=== PATIENT | male | born 1965 | race Caucasian/White ===

== ENCOUNTER 2017-02-22 10:10 | Inpatient (IN) | payer OTHER ==
[~2017-02-22] VITALS: Ht 180.3 cm; Wt 63.6 kg
[2017-02-22 10:26] LABS: BASOPHIL COUNT 0.1 K/uL (0-0.1); EOSINOPHIL (%) 4.5 % (0-5); EOSINOPHIL COUNT 0.6 K/uL (0-0.3); HEMATOCRIT 48.1 % (38.0-50.0); IMMATURE GRANULOCYTE (%) 0.4 % (0.0-0.7); IMMATURE GRANULOCYTE COUNT 0.1 K/uL; INSTRUMENT ABS NEUTROPHIL CT 10.3 K/uL; LYMPHOCYTE COUNT 1.8 K/uL (1.0-2.8); MCHC 33.7 G/DL (30.0-36.0); MEAN PLAT.VOLUME 9.8 uM^3 (9.0-12.4); MONOCYTE COUNT 1.1 K/uL (0-0.8); NEUTROPHIL (%) 73.8 % (45-76); NEUTROPHIL COUNT 10.3 K/uL (1.8-6.4); PLATELET COUNT 288 K/uL (156-360); RBC DIS.WIDTH-CV 12.5 % (11.8-14.6); RBC DIS.WIDTH-SD 42.5 % (39-53); RED BLOOD COUNT 5.23 M/uL (4.00-5.50); WHITE BLOOD COUNT 13.9 K/uL (4.1-10.2)
[2017-02-22 10:40] LABS: AMYLASE 47 IU/L (1-118); CHLORIDE 105 mEq/L (99-109); POTASSIUM 4.4 mEq/L (3.7-5.4); SODIUM 139 mEq/L (136-147)
[2017-02-22 10:41] LABS: GLUCOSE 94 mg/dL (70-99)
[2017-02-22 10:43] LABS: ANION GAP 11 MEQ/L (2-14); INTER. NORMALIZED RATIO 0.9; PROTHROMBIN TIME 10.1 SEC (10.2-12.9)
[2017-02-22 10:44] LABS: SERUM ETHYL ALCOHOL < 10 mg/dL
[2017-02-22 10:45] LABS: GFR ESTIMATE (CALCULATED) > 59 mL/min/
[2017-02-22 10:46] LABS: PTT 29.8 SEC (25-37); UREA NITROGEN (BUN) 3 mg/dL (9-23)
[2017-02-22 10:48] LABS: LIPASE 16 U/L (1.0-51.0)
[2017-02-22 10:49] LABS: TROP-I INTERPRETATION NEGATIVE; TROPONIN-I < 0.01 ng/mL (0.0-0.30)
[2017-02-22 13:33] LABS: ADD MIUA? NO; BILIRUBIN NEGATIVE; BLOOD NEGATIVE; COLOR STRAW ((YELLOW)); GLUCOSE (STRIP) NEGATIVE; KETONES NEGATIVE; LEUKOCYTES NEGATIVE; NITRITE NEGATIVE; PROTEIN (STRIP) NEGATIVE; SPECIFIC GRAVITY 1.009 (1.000-1.030); UCUL ADDED? NO; UROBILINOGEN 0.2 MG/DL (0.2-1.0)
[2017-02-22] MEDS ORDERED: OXYCODONE-APAP1 EACH PO (13:38)
[2017-02-22] MEDS ORDERED: AMITRIPTYLINE H10 MG PO (13:39)
[2017-02-22] MEDS ORDERED: METHOCARBAMOL500 MG PO (13:39)
[2017-02-22] MEDS ORDERED: IBUPROFEN800 MG PO (13:41)
[2017-02-22] MEDS ORDERED: ENBREL50 MG/1 ML SC (13:41)
[2017-02-22 13:42] LABS: AMPHETAMINE NEGATIVE (500 ng/mL); BARBITURATES NEGATIVE (200 ng/mL); BENZODIAZEPINES NEGATIVE (150 ng/mL); COCAINE NEGATIVE (150 ng/mL); INTERNAL CONTROLS VALID? YES; METHADONE NEGATIVE (200 ng/mL); METHAMPHETAMINE NEGATIVE (500 ng/mL); OPIATES (MORPHINE) NEGATIVE (100 ng/mL); OXYCODONE PRESUMPTIVE POSITIVE (100 ng/mL); PHENCYCLIDINE NEGATIVE (25 ng/mL); PROPOXYPHENE NEGATIVE (300 ng/mL); THC CANNABINOIDS NEGATIVE (50 ng/mL); TRICYCLIC ANTIDEPRESSANTS PRESUMPTIVE POSITIVE (300 ng/mL)
[2017-02-22 15:12] LABS: HDL CHOLESTEROL 39 MG/DL (Desirable>=40); LDL CHOLESTEROL 144 mg/dL (Desirable<100); NON-HDL CHOLESTEROL 205 mg/dL (Desirable<160); TOTAL CHOLESTEROL 244 mg/dL (Desirable<200); TRIGLYCERIDES 303 MG/DL (Normal: <150)
[2017-02-22] MEDS ORDERED: CLONAZEPAM0.5 MG PO (16:03)
[2017-02-22 16:13] LABS: ERTH.SED.RATE 20 MM/HR (0-15)
[2017-02-22 17:12] LABS: Estimated Average Glucose 111 mg/dL (70-123); HEMOGLOBIN A1c (GLYCOHEMOGLOB) 5.5 % HGB (Below 5.7)
[2017-02-22 17:20] LABS: TROP-I INTERPRETATION NEGATIVE; TROPONIN-I < 0.01 ng/mL (0.0-0.30)
[2017-02-22 19:54] VITALS: BP 160/96
[2017-02-22 23:55] LABS: TROP-I INTERPRETATION NEGATIVE; TROPONIN-I < 0.01 ng/mL (0.0-0.30)
[2017-02-23] VITALS (8 sets, daily range): BP systolic 135–172; BP diastolic 83–99
[2017-02-24 00:06] VITALS: BP 139/83
[2017-02-24 03:55] VITALS: BP 174/95
[2017-02-24 08:00] VITALS: BP 167/106
[2017-02-24] MEDS ORDERED: NICOTINE PATCH1 EAC2 TD (09:04)
[2017-02-24] MEDS ORDERED: ATORVASTATIN CA40 MG PO (09:11)
[2017-02-24] MEDS ORDERED: ASPIR 8181 M1 PO (09:12)
[2017-02-24 11:56] VITALS: BP 146/88
[2017-02-24] MEDS ORDERED: LOVENOX40 MG/0.4 SC (12:37)
[2017-02-24] MEDS ORDERED: ZOFRAN4 MG PO (12:39)
[2017-02-28 16:06] LABS: DRVVT Mixing Study Interp Not Indicated (()); PROTEIN C FUNCTIONAL ACTIVITY+ 124 % (70-180); PTT-LA 42 sec (<=40); Protein S, Free 138 % normal (57-171); dRVVT Screen 41 sec (<=45)
[2017-02-28] MEDS ORDERED: ASPIRIN EC325 MG PO (20:25)
[2017-02-28] MEDS ORDERED: SENNA PLUS TAB1 EACH PO (20:25)
[2017-02-28] MEDS ORDERED: NICOTINE PATCH1 EAC2 TD (20:25)
[2017-02-28] MEDS ORDERED: ATORVASTATIN CA40 MG PO (20:25)
[2017-03-01 08:38] LABS: ANTITHROMBIN III ACTIVITY+ 80 % activi (80-120)
[2017-03-01] MEDS ORDERED: XARELTO10 MG PO (13:03)
[2017-03-01] MEDS ORDERED: ASPIR 8181 M1 PO (13:04)
== END 2017-02-24 11:51 | DRG 66 ==
LOC: EME → EDBD 10:10 → EME 10:10 → EDOF 13:14 → 5SOUTH 13:14 → ENRESERV 13:18 → EDOF 13:33 → ENRESERV 16:30 → 5SOUTH 19:11 → ENPENDDIS 02-24 → 5SOUTH 02-24 11:51
PROVIDERS: Emergency Medicine; Internal Medicine; Specialist
DX: I63.40 Cerebral infarction due to embolism of unspecified cerebral artery (principal); R47.81 Slurred speech; R29.810 Facial weakness; H90.41 Sensorineural hearing loss, unilateral, right ear, with unrestricted hearing on the contralateral side; I10 Essential (primary) hypertension; D72.829 Elevated white blood cell count, unspecified; M06.9 Rheumatoid arthritis, unspecified; M19.90 Unspecified osteoarthritis, unspecified site; F17.210 Nicotine dependence, cigarettes, uncomplicated
CPT/HCPCS: 70450; 70496; 70498; 70551; 80048; 80061; 80306 90; 81003; 81240 90; 82150; 83036; 83090 90; 83690; 84484; 85025; 85240 90; 85300 90; 85303 90; 85305 90; 85306 90; 85307 90; 85610; 85613 90; 85651; 85730; 85730 90; 86146 90; 86147 90; 86850; 86900; 86901; 92523 GN; 92610 GN; 93005; 93306; 99281; 99285; G0480; J1650; J2405; J7030

== ENCOUNTER 2017-07-27 21:39 | Emergency (ER) | payer OTHER ==
[~2017-07-27] VITALS: Ht 180.3 cm; Wt 81.2 kg
[~2017-07-27 21:39] MED LIST: AMITRIPTYLINE H10 MG PO; ASPIR 8181 M1 PO; ASPIRIN EC325 MG PO; ATORVASTATIN CA40 MG PO; CLONAZEPAM0.5 MG PO; ENBREL50 MG/1 ML SC; IBUPROFEN800 MG PO; LOVENOX40 MG/0.4 SC; METHOCARBAMOL500 MG PO; NICOTINE PATCH1 EAC2 TD; OXYCODONE-APAP1 EACH PO; SENNA PLUS TAB1 EACH PO; XARELTO10 MG PO; ZOFRAN4 MG PO
[2017-07-27 22:05] LABS: HEMATOCRIT 38.7 % (38.0-50.0); HEMOGLOBIN 13.4 G/DL (12.5-16.6); MCH 30.9 PG (29.0-34.0); MCHC 34.6 G/DL (30.0-36.0); MCV 89.4 FL (86-99); PLATELET COUNT 341 K/uL (156-360); RBC DIS.WIDTH-CV 12.6 % (11.8-14.6); RBC DIS.WIDTH-SD 41.7 % (39-53); RED BLOOD COUNT 4.33 M/uL (4.00-5.50); WHITE BLOOD COUNT 8.1 K/uL (4.1-10.2)
[2017-07-27 22:14] LABS: CHLORIDE 103 mEq/L (99-109); POTASSIUM 4.4 mEq/L (3.7-5.4); SODIUM 141 mEq/L (136-147)
[2017-07-27 22:16] LABS: GLUCOSE 98 mg/dL (70-99)
[2017-07-27 22:20] LABS: CREATININE 0.8 mg/dL (0.6-1.3); GFR ESTIMATE (CALCULATED) > 59 mL/min/ (58.99-99999)
[2017-07-27 22:21] LABS: UREA NITROGEN (BUN) 10 mg/dL (9-23)
[2017-07-27 22:25] LABS: TROP-I INTERPRETATION NEGATIVE; TROPONIN-I < 0.01 ng/mL (0.0-0.30)
[2017-07-28 00:29] VITALS: BP 111/71
== END 2017-07-28 00:29 | disposition home or self-care (01) ==
LOC: EME 21:39
DX: R22.43 Localized swelling, mass and lump, lower limb, bilateral (principal); M06.9 Rheumatoid arthritis, unspecified; Z86.73 Personal history of transient ischemic attack (TIA), and cerebral infarction without residual deficits; Z87.891 Personal history of nicotine dependence; Z88.6 Allergy status to analgesic agent; Z88.5 Allergy status to narcotic agent
CPT/HCPCS: 71046; 80048; 84484; 85027; 93005; 93970; 99281; 99284